=== PATIENT | female | born 1985 | race Caucasian/White ===

== ENCOUNTER 2023-02-18 13:49 | Emergency (ER) | payer SELFPAY ==
[~2023-02-18] VITALS: Ht 154.9 cm; Wt 53.5 kg
[2023-02-18] MEDS ORDERED: KETOROLAC TROMETHAMINE INJ 30 MG/ML VIAL IM ONE (14:30)
[2023-02-18 15:08] LABS: PREGNANCY TEST URINE QUAL NEGATIVE (NEGATIVE)
[2023-02-18] MEDS ORDERED: KETOROLAC TROMETHAMINE 15 MG/ML VIAL ONE (15:22)
[2023-02-18] MEDS ORDERED: IBUP-1955 PO (16:30)
[2023-02-18] MEDS ORDERED: CYCL5TAB PO (16:30)
[2023-02-18 16:47] VITALS: BP 135/85; TEMP 97.8; O2SAT 100
== END 2023-02-18 16:48 | disposition home or self-care (01) ==
LOC: ER 13:51
DX: S16.1XXA Strain of muscle, fascia and tendon at neck level, initial encounter (principal); G58.8 Other specified mononeuropathies; R20.2 Paresthesia of skin; Z79.899 Other long term (current) drug therapy; V89.2XXA Person injured in unspecified motor-vehicle accident, traffic, initial encounter; Y93.89 Activity, other specified; Y92.89 Other specified places as the place of occurrence of the external cause; Y99.8 Other external cause status
CPT/HCPCS: 99285; 72125; 96372; 73080; 73030; 84703; J1885